=== PATIENT | male | born 1985 | race Caucasian/White ===

== ENCOUNTER 2019-12-29 18:28 | Emergency (ER) | payer MEDICAID ==
--- NOTE | 2019-12-29 19:11 | EDM.PDOC ---
ED HPI GENERAL MEDICAL PROBLEM - General Chief Complaint: Laceration Stated Complaint: POSSIBLE SEIZURE,RT FINGER CUT Time Seen by Provider: 12/29/19 19:00 Source of Information: Reports: Patient History Limitations: Reports: No Limitations - History of Present Illness INITIAL COMMENTS - FREE TEXT/NARRATIVE: 34 yo male here after accidentally cutting the R index finger. Unknown tetanus status. Here for eval and repair. Onset: Today, Sudden Onset Date: 12/29/19 Duration: Minutes: Location: Reports: Upper Extremity, Right Quality: Reports: Dull Severity: Mild Improves with: Reports: None Worsens with: Reports: Other (touching wound) Context: Reports: Trauma Associated Symptoms: Reports: No Other Symptoms Treatments [employer] COORDINATOR: Reports: Other (see below) (none) - Related Data Allergies Allergy/AdvReac Type Severity Reaction Status Date / Time No Known Allergies Allergy Verified 12/29/19 18:36 Home Meds: Home Meds NK [No Known Home Meds] 12/29/19 [History] Past Medical History Neurological History: Reports: Seizure - Past Surgical History GI Surgical History: Reports: Hernia, Inguinal Social & Family History - Tobacco Use Smoking Status *Q: Current Every Day Smoker Years of Tobacco use: 18 Packs/Tins Daily: 1.5 - Recreational Drug Use Recreational Drug Type: Reports: Marijuana/Hashish Recreational Drug Use Frequency: Daily ED ROS GENERAL - Review of Systems Review Of Systems: See Below Constitutional: Reports: No Symptoms Musculoskeletal: Reports: No Symptoms Skin: Reports: Wound (R index finger) Neurological: Reports: No Symptoms ED EXAM, SKIN/RASH Exam: See Below Exam Limited By: No Limitations General Appearance: Alert, WD/WN, No Apparent Distress Extremities: Other (wound R index finger dorsally, normal strength with extension. Intact cap refill distally.) Neurological: Alert, Oriented, CN II-XII Intact, Normal Cognition, No Motor/Se nsory Deficits Psychiatric: Normal Affect, Normal Mood Skin: Warm, Dry, Normal Color, No Rash, Wound/Incision Location, Skin: Upper Extremity, Left (index finger) Characteristics: Linear. No: Erythematous Associated features: Tenderness. No: Induration, Lymphangitis ED SKIN PROCEDURES - Laceration/Wound Repair Right Middle Dorsal Digit - 2nd (Index) Appearance: Subcutaneous, Linear, Clean Distal NVT: Neuro & Vascular Intact, No Tendon Injury Anesthetic Type: Local Local Anesthesia - Lidocaine (Xylocaine): 1% Plain Local Anesthetic Volume: 3cc Skin Prep: Saline Saline Irrigation (cc's): 25 Exploration/Debridement/Repair: Wound Explored Closed with: Sutures Lac/Wound length In cm: 2 Suture Size: 5-0 # of Sutures: 5 Suture Type: Prolene, Interrupted, Simple Drain Placement: No Sterile Dressing Applied: Nurse Tetanus Status Addressed: Yes Complications: No Course - Vital Signs Last Recorded V/S: Last Vital Signs Temp 35.7 C L 12/29/19 18:44 Pulse 78 12/29/19 18:44 Resp 20 12/29/19 18:44 BP 114/75 12/29/19 18:44 Pulse Ox 99 12/29/19 18:44 - Orders/Labs/Meds Orders: Active Orders 24 hr Category Date Time Status Vaccines to be Administered [RC] PER UNIT ROUTINE Care 12/29/19 19:26 Ordered Bacitracin [Bacitracin Oint 1 GM] Med 12/29/19 19:26 Once 1 dose TOP ONETIME ONE Diphth,Pertuss(Acell),Tet Vac [Adacel] Med 12/29/19 19:26 Once 0.5 ml IM .ONCE ONE Meds: Medications Discontinued Medications Generic Name Dose Route Start Last Admin Trade Name Freq PRN Reason Stop Dose Admin Lidocaine HCl 5 ml 12/29/19 19:06 Xylocaine-Mpf 1% INJECT 12/29/19 19:07 ONETIME ONE Departure - Departure Time of Disposition: 19:30 Disposition: Home, Self-Care 01 Condition: Good Clinical Impression: Finger laceration Qualifiers: Encounter type: initial encounter Finger: index finger Damage to nail status: without damage Foreign body presence: without foreign body Laterality: right Qualified Code(s): S61.210A - Laceration without foreign body of right index finger without damage to nail, initial encounter - Discharge Information *PRESCRIPTION DRUG MONITORING PROGRAM REVIEWED*: No *COPY OF PRESCRIPTION DRUG MONITORING REPORT IN PATIENT SADIQ: No Instructions: Laceration Care, Adult, [id number] Referrals: Alberto Sommer Sr, MD [Primary Care Provider] - Forms: ED Department Discharge Additional Instructions: Clean wound twice daily with soap and water. Dry. Apply antibiotic ointment and a new dressing. Recheck for signs of infection. Keep wound clean for 3 days. Stitches out in your doctor's office in about 9 days. Sepsis Event Note (ED) - Evaluation Sepsis Screening Result: No Definite Risk - Focused Exam Vital Signs: Vital Signs Temp Pulse Resp BP Pulse Ox 12/29/19 18:44 35.7 C L 78 20 114/75 99 12/29/19 18:33 35.7 C L 78 20 114/75 99 - My Orders Last 24 Hours: My Active Orders 12/29/19 19:26 Vaccines to be Administered [RC] PER UNIT ROUTINE Bacitracin [Bacitracin Oint 1 GM] 1 dose TOP ONETIME ONE Diphth,Pertuss(Acell),Tet Vac [Adacel] 0.5 ml IM .ONCE ONE - Assessment/Plan Last 24 Hours: My Active Orders 12/29/19 19:26 Vaccines to be Administered [RC] PER UNIT ROUTINE Bacitracin [Bacitracin Oint 1 GM] 1 dose TOP ONETIME ONE Diphth,Pertuss(Acell),Tet Vac [Adacel] 0.5 ml IM .ONCE ONE
[2019-12-29] MEDS ORDERED: Diphtheria,Pertussis(Acell),Tetanus Vaccine 0.5 ML SDV IM ONE (19:26)
[2019-12-29] MEDS ORDERED: Bacitracin Oint 1 GM U/D Packet TOP ONE (19:26)
[2019-12-29] MEDS ORDERED: Diphtheria,Pertussis(Acell),Tetanus Vaccine 0.5 ML SDV ONE (19:31)
== END 2019-12-29 19:42 | disposition home or self-care (01) ==
LOC: JP.ED 18:28
DX: S61.210A Laceration without foreign body of right index finger without damage to nail, initial encounter (principal); F17.210 Nicotine dependence, cigarettes, uncomplicated; Z23 Encounter for immunization; W26.8XXA Contact with other sharp object(s), not elsewhere classified, initial encounter
CPT/HCPCS: 12001; 90471; 90715; 99282; J2001

== ENCOUNTER 2021-11-23 15:15 | Emergency (ER) | payer MEDICAID ==
[2021-11-23] MEDS ORDERED: fentaNYL 100 MCG/2 ML SDV NASBOTH ONE (15:50)
[2021-11-23] MEDS ORDERED: Bacitracin Oint 1 GM U/D Packet TOP ONE (16:13)
[2021-11-23] MEDS ORDERED: Lidocaine 1% 5 ML VIAL INJECT ONE (16:13)
== END 2021-11-23 17:15 | disposition home or self-care (01) ==
LOC: JP.ED 15:15
DX: S61.211A Laceration without foreign body of left index finger without damage to nail, initial encounter (principal); S61.210A Laceration without foreign body of right index finger without damage to nail, initial encounter; Z72.0 Tobacco use; W26.8XXA Contact with other sharp object(s), not elsewhere classified, initial encounter
CPT/HCPCS: 12002; 73140-26-LT; 73140-LT; 99281; 99283-25; J3010

== ENCOUNTER 2024-07-07 10:20 | Emergency (ER) | payer MEDICAID ==
[2024-07-07] MEDS: Ondansetron 4 MG Tab.DIS PO ONE (11:16)
[2024-07-07] MEDS: Acetaminophen/oxyCODONE 325-5 MG Tab PO PRN (11:25)
[2024-07-07 11:31] LABS: BASOPHILS ABSOLUTE AUTO 0.09 K/uL (0.00-0.10); BASOPHILS PERCENT AUTO 0.5 % (0.1-1.3); EOSINOPHILS ABSOLUTE AUTO 0.09 K/uL (0.00-0.40); EOSINOPHILS PERCENT AUTO 0.5 % (0.0-5.4); HEMOGLOBIN 15.8 g/dL (12.9-16.9); IMMATURE GRAN ABSOLUTE AUTO 0.08 K/uL (0.00-0.23); IMMATURE GRAN PERCENT AUTO 0.5 % (0.0-0.7); LYMPHOCYTES ABSOLUTE AUTO 1.84 K/uL (0.8-3.3); LYMPHOCYTES PERCENT AUTO 10.8 % (11.4-47.7); MEAN CORPUSCULAR HEMOGLOBIN 31.9 pg (31.6-35.5); MEAN CORPUSCULAR HGB CONC 35.1 g/dL (31.6-35.5); MEAN CORPUSCULAR VOLUME 90.7 fL (81.4-99.0); MONOCYTES ABSOLUTE AUTO 1.15 K/uL (0.20-0.90); MONOCYTES PERCENT AUTO 6.8 % (3.3-12.6); NEUTROPHILS ABSOLUTE AUTO 13.75 K/uL (1.0-7.6); NEUTROPHILS PERCENT AUTO 80.9 % (40.0-78.1); PLATELET COUNT,PLT 330 K/uL (130-375); RED BLOOD CELL COUNT 4.96 M/uL (4.14-5.76)
[2024-07-07 11:46] LABS: INR 1.1; PROTHROMBIN TIME 11.6 sec (9.2-10.6)
[2024-07-07 11:50] LABS: A/G RATIO 1.2 (1.2-2.2); ALANINE AMINOTRANSFERASE,ALT 27 U/L (12-78); ALBUMIN 4.1 g/dL (3.4-5.0); ALKALINE PHOSPHATASE 104 U/L (46-116); ANION GAP 9.5 mmol/L (5.0-14.0); ASPARTATE AMNIOTRANSFERASE,AST 31 U/L (15-37); BILIRUBIN TOTAL 0.3 mg/dL (0.2-1.0); BLOOD UREA NITROGEN,BUN 13 mg/dL (7-18); CALCIUM 8.5 mg/dL (8.5-10.1); CARBON DIOXIDE,CO2 29 mmol/L (21-32); CHLORIDE,CL 103 mmol/L (100-108); CREATININE 1.2 mg/dL (0.8-1.3); ESTIMATED GFR 78 mL/min (>60); GLUCOSE RANDOM 127 mg/dL (74-106); POTASSIUM,K 3.9 mmol/L (3.6-5.2); PROTEIN TOTAL,TP 7.4 g/dL (6.4-8.2); SODIUM,NA 141 mmol/L (140-148)
[2024-07-07] MEDS ORDERED: Naloxone 0.4 MG/ML SDV IVPUSH PRN (12:13)
[2024-07-07] MEDS: HYDROmorphone 1 MG/ML Syringe IM ONE (12:19)
[2024-07-07 12:37] LABS: APPEARANCE,URINE CLEAR (CLEAR); BILIRUBIN,URINE NEGATIVE (NEGATIVE); COLOR,URINE YELLOW (YELLOW); GLUCOSE,URINE NEGATIVE (NEGATIVE); KETONES,URINE 40 mg/dL (NEGATIVE); LEUKOCYTE ESTERASE,URINE NEGATIVE (NEGATIVE); NITRITE,URINE NEGATIVE (NEGATIVE); OCCULT BLOOD,URINE NEGATIVE (NEGATIVE); PH,URINE 5.5 (5.0-8.0); PROTEIN,URINE NEGATIVE (NEGATIVE); UROBILINOGEN,URINE 0.2 EU/dL (0.2-1.0)
[2024-07-07 12:44] LABS: AMORPHOUS SEDIMENT,URINE NOT SEEN; BACTERIA,URINE NOT SEEN; EPITHELIAL CELLS,URINE NOT SEEN; RBC,URINE 0-5 (0-5); WBC,URINE 0-5 (0-5)
[2024-07-07 12:45] LABS: AMPHETAMINES SCREEN, URINE NEGATIVE (NEGATIVE); BARBITURATE SCREEN,URINE NEGATIVE (NEGATIVE); BENZODIAZEPINES SCREEN,URINE NEGATIVE (NEGATIVE); METHADONE SCREEN, URINE NEGATIVE (NEGATIVE); METHAMPHETAMINES SCREEN, URINE NEGATIVE (NEGATIVE); OXYCODONE SCREEN,URINE NEGATIVE (NEGATIVE); PROPOXYPHENE SCREEN,URINE NEGATIVE (NEGATIVE); THC SCREEN,URINE 50 NG/ML PRESUMPTIVE POSITIVE (NEGATIVE)
[2024-07-07 12:45] LABS: MUCUS,URINE MODERATE
== END 2024-07-07 12:50 | disposition home or self-care (01) ==
LOC: JP.ED 10:20
DX: S02.91XA Unspecified fracture of skull, initial encounter for closed fracture (principal); R56.9 Unspecified convulsions; F17.210 Nicotine dependence, cigarettes, uncomplicated; Z79.899 Other long term (current) drug therapy; W22.8XXA Striking against or struck by other objects, initial encounter
CPT/HCPCS: 36415; 70450; 80053; 80305; 80307; 81001; 85025; 85610; 96372; 99284; A9270; J1171; Q0162

== ENCOUNTER 2024-10-25 13:19 | Emergency (ER) | payer MEDICAID ==
[2024-10-25] MEDS ORDERED: Sodium Chloride 0.9% 500 ML IV ONE (13:34)
[2024-10-25 13:48] LABS: BASOPHILS ABSOLUTE AUTO 0.09 K/uL (0.00-0.10); EOSINOPHILS ABSOLUTE AUTO 0.29 K/uL (0.00-0.40); EOSINOPHILS PERCENT AUTO 3.4 % (0.0-5.4); HEMATOCRIT 42.9 % (38.4-49.7); HEMOGLOBIN 14.2 g/dL (12.9-16.9); IMMATURE GRAN ABSOLUTE AUTO 0.05 K/uL (0.00-0.23); IMMATURE GRAN PERCENT AUTO 0.6 % (0.0-0.7); LYMPHOCYTES ABSOLUTE AUTO 1.87 K/uL (0.8-3.3); LYMPHOCYTES PERCENT AUTO 21.8 % (11.4-47.7); MEAN CORPUSCULAR HEMOGLOBIN 30.6 pg (31.6-35.5); MEAN CORPUSCULAR HGB CONC 33.1 g/dL (31.6-35.5); MEAN CORPUSCULAR VOLUME 92.5 fL (81.4-99.0); MONOCYTES ABSOLUTE AUTO 0.74 K/uL (0.20-0.90); MONOCYTES PERCENT AUTO 8.6 % (3.3-12.6); NEUTROPHILS ABSOLUTE AUTO 5.54 K/uL (1.0-7.6); NEUTROPHILS PERCENT AUTO 64.6 % (40.0-78.1); PLATELET COUNT,PLT 323 K/uL (130-375); RED BLOOD CELL COUNT 4.64 M/uL (4.14-5.76); WHITE BLOOD CELL COUNT,WBC 8.6 K/uL (3.2-11.0)
[2024-10-25 14:09] LABS: ALANINE AMINOTRANSFERASE,ALT 24 U/L (12-78); ALBUMIN 3.5 g/dL (3.4-5.0); ALKALINE PHOSPHATASE 109 U/L (46-116); ASPARTATE AMNIOTRANSFERASE,AST 17 U/L (15-37); BILIRUBIN TOTAL 0.1 mg/dL (0.2-1.0); BLOOD UREA NITROGEN,BUN 12 mg/dL (7-18); CALCIUM 8.7 mg/dL (8.5-10.1); CARBON DIOXIDE,CO2 22 mmol/L (21-32); CHLORIDE,CL 105 mmol/L (100-108); ESTIMATED GFR 98 mL/min (>60); GLUCOSE RANDOM 78 mg/dL (74-106); POTASSIUM,K 4.4 mmol/L (3.6-5.2); PROTEIN TOTAL,TP 6.9 g/dL (6.4-8.2); SODIUM,NA 138 mmol/L (140-148)
[2024-10-25 14:10] LABS: ANION GAP 15.4 mmol/L (5.0-14.0)
[2024-10-29 22:57] LABS: PROLACTIN 9.6 ng/mL (2.1-17.7)
== END 2024-10-25 13:58 | disposition left against medical advice (07) ==
LOC: JP.ED 13:19
DX: R56.9 Unspecified convulsions (principal); F17.210 Nicotine dependence, cigarettes, uncomplicated; Z91.030 Bee allergy status
CPT/HCPCS: 36415; 80053; 84146; 85025; 99284

== ENCOUNTER 2024-11-14 12:46 | Emergency (ER) | payer MEDICAID | END 2024-11-14 14:02 | disposition home or self-care (01) | LOC: JP.ED 12:46 | DX: K13.0 Diseases of lips (principal); F17.210 Nicotine dependence, cigarettes, uncomplicated; Z91.030 Bee allergy status; Z88.8 Allergy status to other drugs, medicaments and biological substances; Z79.899 Other long term (current) drug therapy | CPT/HCPCS: 99283 ==